=== PATIENT | male | born 1955 | race Caucasian/White ===

== ENCOUNTER 2016-12-14 15:30 | Observation (INO) | payer OTHER ==
[~2016-12-14] VITALS: Ht 190.5 cm; Wt 98.9 kg
[~2016-12-14 15:30] MED LIST: AMOXICILLIN500 M3 PO; ASPIRIN EC81 M1 PO; ASPIRIN325 M2 PO; BENTYL10 M1 PO; CEPHALEXIN500 M3 PO; CLINDAMYCIN HC300 M1 PO; GLIMEPIRIDE4 M1 PO; LOSARTAN POTASS25 M1 PO; METFORMIN HCL1000 M1 PO; METOPROLOL TART50 M1 PO; PERCOCET 5-3251 EACH PO; SIMVASTATIN20 M2 PO; ZOFRAN ODT4 M1 SL
--- NOTE | 2016-12-14 15:42 | NUR ---
PT STATES HE IS HAVING HEAVINESS IN HIS CHEST AND SOB SINCE THIS AM ON AND OFF. PT STATES HE WAS FINE YESTERDAY. PT STATES HE HAD QUAD BIPASS 2 YEARS AGO AND STATES HE DIDN'T HAVE CHEST PAIN THEN EITHER.
--- NOTE | 2016-12-14 16:03 | ED CARDIAC/CP/PALPITATIONS ---
History of Present Illness General Chief Complaint: General Adult Stated Complaint: "HEAVY CHESTED AND OUT OF BREATH" Source: patient, family Exam Limitations: no limitations Allergies Coded Allergies: NO KNOWN ALLERGIES (07/30/16) Reconcile Medications Aspirin (Ecotrin*) 81 MG TABLET.DR 1 TAB PO DAILY HEART/BLOOD (Reported) Glimepiride 4 MG TABLET 0.5 TAB PO BID DIABETES (Reported) Losartan Potassium 25 MG TABLET 1 TAB PO DAILY HTN (Reported) Metformin HCl 1,000 MG TABLET 1 TAB PO BID DM (Reported) Metoprolol Tartrate 25 MG TABLET 1 TAB PO DAILY HEART (Reported) Simvastatin (Simvastatin*) 20 MG TABLET 1 TAB PO QPM HLD (Reported) Tamsulosin HCl 0.4 MG CAP.ER.24H 1 CAP PO DAILY PROSTATE (Reported) Triage Note: PT STATES HE IS HAVING HEAVINESS IN HIS CHEST AND SOB SINCE THIS AM ON AND OFF. PT STATES HE WAS FINE YESTERDAY. PT STATES HE HAD QUAD BIPASS 2 YEARS AGO AND STATES HE DIDN'T HAVE CHEST PAIN THEN EITHER. Triage Nurses Notes Reviewed? yes Onset: Abrupt Duration: better Timing: single episode today Quality/Severity: pressure Location: substernal Radiation: no radiation Activities at Onset: none HPI: Patient is a 61-year-old man with a past medical history significant for diabetes2, hypertension and hyperlipidemia, AND AN ADMISSION proximal leg 1 year ago for concerns of alpha strep septicemia resulting from pyelonephritis and right-sided obstructive uropathy status post stent placement by Dr. Kendrick Patient also has a significant history of coronary artery disease in which September 2015 he had CABG performed. Patient's animal nurse Dr. Hollingsworth. Patient states that he woke up in his normal state of health today and approximately at 9:30 in the morning while changing a hinge on his door he had acute onset of substernal chest heaviness described at the time of 6 out of 10 localized pain and had mild shortness of breath and cough. Patient states that he had resolution of left arm paresthesia and pain prior to arrival during the onset of his symptoms. Patient states that for the past 9-10 hours his symptoms have improved and currently complains of 3-10 substernal chest heaviness. Patient takes a 81 mg of aspirin every night no aspirin was administered today. Denies any fever, chills, back pain, nausea vomiting palpitations diaphoresis leg swelling hemoptysis Patient presents to emergency room (SARAI RIVERA) Vital Signs & Intake/Output Vital Signs & Intake/Output Vital Signs Date Time Temp Pulse Resp B/P Pulse O2 O2 Flow FiO2 Ox Delivery Rate 12/14 1707 85 141/83 12/14 1622 98.0 80 18 149/76 100 Room Air 12/14 1542 97.8 86 16 160/93 96 Room Air Past History Travel History Traveled to [place] past 21 day No Medical History Any Pertinent Medical History? 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 MOTHER (Lung cancer). Relation not specified for: FHx: stroke Hx Contributory? No (SARAI RIVERA) Review of Systems Review of Systems Constitutional: Reports: no symptoms. EENTM: Reports: no symptoms. Respiratory: Reports: see HPI. Cardiovascular: Reports: see HPI, chest pain. GI: Reports: no symptoms. Genitourinary: Reports: no symptoms. Musculoskeletal: Reports: see HPI. Skin: Reports: no symptoms. Neurological/Psychological: Reports: no symptoms. Hematologic/Endocrine: Reports: no symptoms. Immunologic/Allergic: Reports: no symptoms. All Other Systems: Reviewed and Negative (SARAI RIVERA) Physical Exam Physical Exam General Appearance: no apparent distress, alert, comfortable Cardiovascular: regular rate/rhythm Comments: Well-developed well-nourished person in no acute distress HEENT: Normal EENT exam, Neck: Supple, no lymphadenopathy, normal range of motion without pain or tenderness Back: Nontender, no CVA tenderness. Full range of motion Cardiovascular: Regular rate and rhythms no murmurs rubs or gallops, normal JVP Respiratory: Chest nontender. No respiratory distress.breath sounds clear to auscultation bilaterally Abdomen: Soft, nontender nondistended, no appreciable organomegaly. Normal bowel sounds. No ascites Extremity: No edema, no calf tenderness to palpation, normal and equal pulses. Neuro: Alert oriented x3, motor sensory normal, Skin: No appreciable rash on exposed skin, skin is warm and dry. Psych: Mood and affect is normal, memory and judgment is normal. Core Measures ACS in differential dx? Yes ASA ordered for poss ACS? Yes-ordered Severe Sepsis Present: No Septic Shock Present: No (SARAI RIVERA) Progress Differential Diagnosis: AMI, aortic dissection, atrial fibrillation, cholecystitis, CHF/pulm edema, costochondritis, hyperkalemia, hypovolemia, hyperthyroid, hyperventilation, musculoskeletal pain, myocarditis, pancreatitis, pericarditis, pneumonia, pneumothorax, PSVT, pulmonary embolism, PUD/GERD, PVCs/ PACs, respiratory failure, rib fracture, sepsis, unstable angina, V-fib/V-Tach Diagnostic Imaging: Viewed by Me: Radiology Read. CXR Impression: no acute abnormality, no infiltrates, normal size heart Initial ED EKG: normal p-waves, normal QRS complex, normal sinus rhythm, 85 BPM NORMAL SINUS RHYTHM Comments: PATIENT: SACHIN JARQUIN PRESENT AGE: 61 PATIENT ACCOUNT NO: [id number] : 53 LOCATION: [facility] ORDERING PHYSICIAN: SARAI NGUYEN SERVICE DATE: 12/14/16 EXAM TYPE: RAD - XRY-CHEST XRAY, PA AND LATERAL EXAMINATION: XR CHEST CLINICAL INFORMATION: Chest pain COMPARISON: 07/30/2016 TECHNIQUE: 2 views of the chest were obtained. FINDINGS: Median sternotomy wires are demonstrated. CABG markers and surgical clips identified. The cardiac silhouette is not enlarged. The lungs and pleural spaces are clear. IMPRESSION: No acute cardiopulmonary process is seen. (SARAI RIVERA) Plan of Care: Orders Procedure Date/time Status Heart Healthy Diet 12/15 B Active TROPONIN LEVEL 12/15 1999 Active COMPREHENSIVE METABOLIC PANEL 12/15 0600 Active CBC WITHOUT DIFFERENTIAL 12/15 06 Active TROPONIN LEVEL 12/15 0200 Active EKG 12/[address] in observation 12/14 1854 Active Misc Message 12/14 185 Active ED Holding Orders 12/14 185 Active Vital Signs 12/14 185 Active Code Status 12/14 185 Active Patient Data 12/14 182 Active FingerStick- Glucose 02/19 1826 Active Telemetry/Fruit Sprayer 12/14 1621 Active TROPONIN LEVEL 12/14 1550 Complete PARTIAL THROMBOPLASTIN TIME 12/14 1550 Complete PROTHROMBIN TIME 12/14 1550 Complete COMPREHENSIVE METABOLIC PANEL 12/14 1550 Complete CBC WITHOUT DIFFERENTIAL 12/14 1550 Complete EKG 12/14 1531 Active Current Medications Sig/Roxie Start time Last Medication Dose Stop Time Status Admin Atorvastatin Calcium 20 MG 1700 12/15 1700 UNVr (Lipitor) Metoprolol Tartrate 25 MG DAILY 12/15 1000 UNVr (Lopressor) Insulin Aspart 0 TIDAC 12/15 0800 UNVr (NovoLOG) Tamsulosin HCl 0.4 MG DAILY 12/14 1837 UNVr (Flomax) Laboratory Tests 12/14/16 1550: Anion Gap 11, Estimated GFR > 60, BUN/Creatinine Ratio 24.4, Glucose 246 H, Calcium 9.4, Total Bilirubin 1.0, AST 18, ALT 30, Alkaline Phosphatase 64, Troponin I < 0.01, Total Protein 7.3, Albumin 4.0, Globulin 3.3, Albumin/ Globulin Ratio 1.2, PT 10.8, INR 1.03, APTT 30, CBC w Diff NO MAN DIFF REQ, RBC 5.08, MCV 83.3, MCH 28.0, RDW 13.7, MPV 9.4, Gran % 61.0, Lymphocytes % 30.3, Monocytes % 6.9, Eosinophils % 1.5, Basophils % 0.3, Absolute Granulocytes 4.6, Absolute Lymphocytes 2.3, Absolute Monocytes 0.5, Absolute Eosinophils 0.1, Absolute Basophils 0, PUBS MCHC 33.6 Patient currently is in no apparent distress however due to significant past medical history of coronary artery disease and recent CABG that patient's presenting complaints of chest pain shortness breath and arm pain is of concern to have patient admitted to telemetry discussed patient with Dr. Serrano who also evaluated patient. Initially patient was hesitant on being administered sublingual nitroglycerin however he was later convinced. Patient was given therapeutic dose of aspirin. First set of cardiac enzymes and EKG one unremarkable however did discuss disposition and plan with patient and family for observation due to chest pain that he agreed (HERNAN NGUYEN,SARAI) Comments: 12/14/2016 5:15:15 PM patient's case discussed with Dr. eugene Melara. (REGINA SERRANO MD) Departure Departure Disposition: STILL A PATIENT Condition: Stable Clinical Impression Primary Impression: Chest pain Referrals: JUSTUS LITTLE,SUNNI Brunner (PCP/Family) Departure Forms: Customer Survey General Discharge Information Observation Note Spoke With: JORGE ALBERTO LARIOS MD Physician Advisor Notified: CECELIA LITTLE,ACE [facility] [facility] Patient In: Non-ED OBS Care Area Rationale for Observation: My rational for observation is as follows [patient will be admitted to to telemetry observation for concerns of rule out ACS in which patient requires cardiology consultation, repeat labs repeat cardiac enzymes, telemetry monitoring, repeat EKG. Outpatient treatment at this time due to significant past medical history of coronary artery disease and recent CABG would be medically harmful]. (SARAI RIVERA) PA/BILLIARD TABLE ASSEMBLER Co-Sign Statement Statement: ED Attending supervision documentation- [x] I saw and evaluated the patient. I have also reviewed all the pertinent lab results and diagnostic results. I agree with the findings and the plan of care as documented in the PA's/BILLIARD TABLE ASSEMBLER's documentation. [] I have reviewed the ED Record and agree with the PA's/BILLIARD TABLE ASSEMBLER's documentation. [] Additions or exceptions (if any) to the PAs/BILLIARD TABLE ASSEMBLER's note and plan are summarized below: [] (REGINA SERRANO MD) Critical Care Note Critical Care Note Critical Care Time: 30-74 min (SARAI RIVERA)
[2016-12-14 16:07] LABS: ABSOLUTE BASOPHIL COUNT 0 /CUMM (0.0-0.2); ABSOLUTE EOSINOPHIL COUNT 0.1 /CUMM (0.0-0.7); ABSOLUTE GRANULOCYTE CT 4.6 /CUMM (1.4-6.5); ABSOLUTE LYMPH COUNT 2.3 /CUMM (1.2-3.4); ABSOLUTE MONOCYTE COUNT 0.5 /CUMM (0.10-0.60); BASOPHIL % 0.3 % (0.0-2.0); EOSINOPHIL % 1.5 % (0-5); HEMATOCRIT 42.3 % (42-52); MEAN CORPUSCULAR HGB CONC 33.6 G/DL (33.0-37.0); MEAN CORPUSCULAR VOLUME 83.3 FL (80.0-94.0); MEAN PLATELET VOLUME 9.4 FL (7.4-10.4); PLATELET COUNT 223 /CUMM (130-400); RBC DISTRIBUTION WIDTH 13.7 % (11.5-14.5); RED BLOOD CELL CT 5.08 /CUMM (4.70-6.10); WHITE BLOOD CELL COUNT 7.5 /CUMM (4.8-10.8)
[2016-12-14 16:31] LABS: PT 10.8 SEC (9.4-12.5); PTT 30 SEC (25-37)
[2016-12-14] MEDS ORDERED: TAMSULOSIN HCL0.4 M1 PO (16:42)
[2016-12-14] MEDS ORDERED: METOPROLOL TART25 M1 PO (16:43)
--- NOTE | 2016-12-14 16:43 | NUR ---
PT STATES HE DOES NOT WANT TO TAKE SL NITRO UNLESS DR. HINKLE APPROVES IT
--- NOTE | 2016-12-14 16:56 | RADIOLOGY REPORT ---
EXAMINATION: XR CHEST CLINICAL INFORMATION: Chest pain COMPARISON: 07/30/2016 TECHNIQUE: 2 views of the chest were obtained. FINDINGS: Median sternotomy wires are demonstrated. CABG markers and surgical clips identified. The cardiac silhouette is not enlarged. The lungs and pleural spaces are clear. IMPRESSION: No acute cardiopulmonary process is seen.
--- NOTE | 2016-12-14 17:07 | NUR ---
0.4MG SL NITRO ADMINISTERED FOR CHEST DISCOMFORT 12/05. NSR ON MONITOR. WILL CONTINUE TO MONITOR
--- NOTE | 2016-12-14 17:15 | NUR ---
PT STATES PAIN IS UNCHANGED AFTER NITRO ADMINISTRATION
--- NOTE | 2016-12-14 18:28 | History & Physical ---
DAVID JOHN 12/14/16 1827: General Information and HPI MD Statement: I have seen and personally examined SACHIN JARQUIN and documented this H&P. The patient is a 61 year old M who presented with a patient stated chief complaint of chest pressure Source of Information: patient, old records Exam Limitations: no limitations History of Present Illness: 60-year-old gentleman with a past medical history significant for quadruple bypass September 2015 done at [facility], diabetes, hypertension and hyperlipidemia, admitted to [facility] 07/30/16 for alpha strep septicemia secondary to pyelonephritis here for evaluation of chest pressure. Patient states that yesterday he was doing heavy work, doing woodwork coming-out hinges for doors and he went up and down the stairs almost 25 times without any shortness of breath however he did inhale a lot of dust. This morning and 9:30 when he woke up he felt substernal chest pressure which was intermittent and lasted for a few minutes with some mild left upper arm tingling. Last episode was 3 hours ago. On interview he remained pain-free and reported some difficulty taking deep breaths. Denied fever, chills, palpitations, dizziness, diaphoresis, pleuritic chest pain. Allergies/Medications Allergies: Coded Allergies: NO KNOWN ALLERGIES (07/30/16) Home Med list Aspirin (Ecotrin*) 81 MG TABLET.DR 1 TAB PO DAILY HEART/BLOOD (Reported) Glimepiride 4 MG TABLET 0.5 TAB PO BID DIABETES (Reported) Losartan Potassium 25 MG TABLET 1 TAB PO DAILY HTN (Reported) Metformin HCl 1,000 MG TABLET 1 TAB PO BID DM (Reported) Metoprolol Tartrate 25 MG TABLET 1 TAB PO DAILY HEART (Reported) Simvastatin (Simvastatin*) 20 MG TABLET 1 TAB PO QPM HLD (Reported) Tamsulosin HCl 0.4 MG CAP.ER.24H 1 CAP PO DAILY PROSTATE (Reported) Compliance With Home Meds: GOOD Past History Travel History Traveled to [place] past 21 day No Medical History Neurological: NONE EENT: NONE Cardiovascular: CAD, hyperlipidemia, QUADRUPLE BYPASS Respiratory: NONE Gastrointestinal: GERD Hepatic: NONE Musculoskeletal: NONE Psychiatric: NONE Endocrine: diabetes Blood Disorders: NONE Cancer(s): 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 Heart disease MOTHER (Lung cancer). Relation not specified for: FHx: stroke Psychosocial History Who Do You Live With? Fiance Services at Home: None Smoking Status: Former Smoker ETOH Use: occasional use Illicit Drug Use: denies illicit drug use Functional Ability ADLs Independent: dressing, eating, toileting, bathing. Ambulation: independent IADLs Independent: shopping, housework, finances, food prep, telephone, transportation , medication admin. Review of Systems Review of Systems Constitutional: Denies: chills, diaphoresis, fever, malaise, weakness, unexplained weight loss. Cardiovascular: Denies: chest pain, edema, orthopena, palpitations, peripheral edema, syncope. Respiratory: Denies: cough, hemoptysis, orthopnea, short of breath, sputum production, stridor, wheezing. GI: Denies: abdominal pain, bloating, constipation, diarrhea, distention, bowel incontinence, melena, nausea, bloody stool, changes in stool, vomiting, steatorrhea. Genitourinary: Denies: discharge, dysuria, frequency, hematuria, hesitation, nocturia, pain, urgency. Exam & Diagnostic Data Last 24 Hrs of Vital Signs/I&O Vital Signs Date Time Temp Pulse Resp B/P Pulse O2 O2 Flow FiO2 Ox Delivery Rate 12/14 1707 85 141/83 12/14 1622 98.0 80 18 149/76 100 Room Air 12/14 1542 97.8 86 16 160/93 96 Room Air Intake & Output 12/14 1600 12/14 0800 12/14 0000 Intake Total Output Total Balance Patient 218 lb Weight Physical Exam General Appearance Alert, Oriented X3, Cooperative, No Acute Distress HEENT Atraumatic, EOMI, Mucous Membr. moist/pink Neck Supple, No JVD, +2 Carotid Pulse wo Bruit Cardiovascular Regular Rate, Normal S1, Normal S2 Lungs Clear to Auscultation, Normal Air Movement Abdomen Normal Bowel Sounds, Soft, No Tenderness Neurological Normal Speech, Strength at 5/5 X4 Ext, Normal Tone, Cranial Nerves 3-12 NL Extremities No Edema Diagnostic Data EKG Results Wilmer sinus, rate 85, QTC 452, Q-wave in inferior leads seen, old LBBB CXR Results IMPRESSION: No acute cardiopulmonary process is seen. Assessment/Plan Assessment: 60-year-old gentleman with a past medical history significant for quadruple bypass September 2015 done at [facility], diabetes, hypertension and hyperlipidemia, admitted to [facility] 07/30/16 for alpha strep septicemia secondary to pyelonephritis here for evaluation of chest pressure. Will be admitted to telemetry for 23-hour labs. As Ranked By This Provider Problem List: 1. Chest pain Assessment/Plan Continuous cardiac monitoring Will trend troponin/ EKG to rule out ACS States that he had a recent echo done at Dr. Hollingsworth's office in September Inform cardiology in the a.m. 2. Diabetes mellitus Assessment/Plan Monitor fingersticks NovoLog sliding scale 3. Hypertension Assessment/Plan Continue Lipitor and Lopressor 4. BPH (benign prostatic hyperplasia) Assessment/Plan Continue Flomax 5. DVT prophylaxis Assessment/Plan The Lovenox 6. Full code status Core Measures/Miscellaneous Acute Coronary Syndrome ACS Diagnosis: No Cerebrovascular Accident CVA/TIA Diagnosis: No Congestive Heart Failure CHF Diagnosis: No Venous Thromboembolism VTE Risk Factors: Age > 40 VTE Prophylaxis Ordered Inpt: Pharm- Lovenox No Mech VTE prophylaxis d/t: No contraindications No VTE Pharm Prophylaxis d/t: No contraindications VTE Diagnosis: No VTE Type: NONE VTE Confirmed by (Test): NONE Severe Sepsis Severe Sepsis Present: No Septic Shock Septic Shock Present: No Miscellaneous Documentation Attending Case Discussed With: JORGE ALBERTO LARIOS MD Primary Care Physician: SUNNI JEROME MD Patient sees these Specialists Dr. Hollingsworth Level of Patient Care: Telemetry JORGE ALBERTO LARIOS MD 12/14/161910: Attending MD Review Statement Attending Statement Attending MD Statement: examined this patient, discuss w/resident/PA/[facility] PROMOTER, agreed w/resident/PA/[employer]OMOT[facility], reviewed EMR data (avail) Attending Assessment/Plan: 61M admitted for exertional chest pain, shortness of breath. Will observe in telemetry, serial enzyems and troponin, cardiology consult. Will consider inpatient vs outpatient stress test in the morning. Continue ASA, statin, home medications. JUDAH YOUNG 12/14/161913: Resident Review Statement Resident Statement: examined this patient, agreed with statistics intern Other Findings: PATIENT IS 61 YEAR OLD MALE WITH pmh of HTN, HLD, ACS CABG perfomred in sep 2015 , Alpha strep bacteremia from pyelonephritis and right-sided obstructive uropathy came with chief complain of chest pressure this morning around 9 am. 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 5/10 initially. Patient also reported on mild exertional shortness of breath. Patient states that he has never has similar kind of symptoms in the past. 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 He had recent ECho done in Sep [address] Hollingsworth's office records unavaliable. Patient took all his morning medications before coming in this morning. Vitals and labs as above CXR - Clear Assessment and Plan Will admit to telemetry floor and monitor for chest pain/pressure Will trend serial troponins and ekg at 8 pm and 2 am looking for ischemia WIll call cardiology consult in am Patient to be continued on his home meds including aspirin, metoprolol, tamsulosin, losartan Will start him on low dose novolg SS and check serial finger sticks heart healthy/diabetic diet DVT ppx sc lovenox Patient is full code.
--- NOTE | 2016-12-14 19:02 | NUR ---
PT HAS BED ASSIGNMENT 185-1
--- NOTE | 2016-12-14 19:18 | NUR ---
PHARMACY CALLED TO CHANGE TIME OF MEDS
--- NOTE | 2016-12-14 19:24 | NUR ---
REPORT GIVEN TO YELENA GAR
--- NOTE | 2016-12-14 19:29 | NUR ---
PT STATES HE TAKES LONG ACTING INSULIN AT NIGHT AND DOES NOT TAKE SHORT ACTING INSULIN AT ALL.
--- NOTE | 2016-12-14 19:30 | NUR ---
HOUSE STAFF PAGED FOR MED CLARIFICATION
[2016-12-14 21:00] VITALS: BP 102/64
[2016-12-15 03:14] LABS: ABSOLUTE BASOPHIL COUNT 0 /CUMM (0.0-0.2); ABSOLUTE EOSINOPHIL COUNT 0.2 /CUMM (0.0-0.7); ABSOLUTE GRANULOCYTE CT 3.1 /CUMM (1.4-6.5); ABSOLUTE LYMPH COUNT 2.1 /CUMM (1.2-3.4); ABSOLUTE MONOCYTE COUNT 0.4 /CUMM (0.10-0.60); BASOPHIL % 0.6 % (0.0-2.0); EOSINOPHIL % 3.1 % (0-5); GRANULOCYTE % 52.6 % (42.2-75.2); HEMATOCRIT 41.2 % (42-52); MEAN CORPUSCULAR HGB CONC 33.5 G/DL (33.0-37.0); MEAN CORPUSCULAR VOLUME 83.5 FL (80.0-94.0); PLATELET COUNT 207 /CUMM (130-400); RBC DISTRIBUTION WIDTH 13.6 % (11.5-14.5); RED BLOOD CELL CT 4.93 /CUMM (4.70-6.10); WHITE BLOOD CELL COUNT 5.9 /CUMM (4.8-10.8)
[2016-12-15 08:27] VITALS: BP 126/80
[2016-12-15 09:43] VITALS: BP 126/80
--- NOTE | 2016-12-15 10:08 | Patient Discharge Instructions ---
Discharge Instructions General Discharge Information You were seen/treated for: chest discomfort Special Instructions: Please follow-up with your primary care physician within one week of discharge Please follow-up with your nuclear criticality safety engineer within 1 week of discharge Diet Recommended Diet: Heart Healthy Acute Coronary Syndrome Inclusion Criteria At DC or during hospital stay patient has or had the following: ACS DIAGNOSIS No Discharge Core Measures Meds if any: Prescribed or Continued at Discharge Meds if any: NOT Prescribed or Continued at Discharge Congestive Heart Failure Inclusion Criteria At DC or during hospital stay patient has or had the following: CHF DIAGNOSIS No Discharge Core Measures Meds if any: Prescribed or Continued at Discharge Meds if any: NOT Prescribed or Continued at Discharge Cerebrovascular accident Inclusion Criteria At DC or during hospital stay patient has or had the following: CVA/TIA Diagnosis No Discharge Core Measures Meds if any: Prescribed or Continued at Discharge Meds if any: NOT Prescribed or Continued at Discharge Venous thromboembolism Inclusion Criteria VTE Diagnosis No VTE Type NONE VTE Confirmed by (Test) NONE Discharge Core Measures - Per Current guidelines, there needs to be overlap - treatment for the first 5 days of Warfarin therapy. - If discharged on Warfarin prior to 5 days of - overlap therapy, the patient will need to be - assessed for post discharge needs including - *Post discharge parental anticoagulation - *Warfarin and/or parental anticoagulation education - *Follow up date to check INR post discharge At least 5 days overlap therapy as Inpatient No Meds if any: Prescribed or Continued at Discharge Note: Overlap Therapy is Warfarin and Anticoagulant Meds if any: NOT Prescribed or Continued at Discharge
--- NOTE | 2016-12-15 10:22 | Cons- Cardiology ---
General Information and HPI Consulting Request Date of Consult: 12/15/16 Requested By: JORGE ALBERTO LARIOS MD Reason for Consult: CAD, chest pain History of Present Illness: The patient is a 61-year-old male with history of CABG in 2014, diabetes mellitus, hypertension, recent admission in July for alpha strep bacteremia secondary to pyelonephritis. He presents with complaint of chest discomfort, which occurred after heavy exertion and exposure to sawdust. He notes that he was doing woodwork on his doors, during which time he went up and down the stairs 25 times and he was exposed to a large amount of sawdust. The next day, he awoke with substernal chest pressure. The chest pressure was intermittent, lasting for a few minutes per episode, and occurring intermittently throughout the day. The longest episode was 15 minutes. At the most severe point, the chest discomfort was a 5 out of 10 in severity. He noted shortness of breath associated with chest discomfort. No diaphoresis. No lightheadedness or dizziness. No nausea or vomiting. He noted some pleuritic chest pain. Allergies/Medications Allergies: Coded Allergies: NO KNOWN ALLERGIES (07/30/16) Home Med List: Aspirin (Ecotrin*) 81 MG TABLET.DR 1 TAB PO DAILY HEART/BLOOD (Reported) Glimepiride 4 MG TABLET 0.5 TAB PO BID DIABETES (Reported) Losartan Potassium 25 MG TABLET 1 TAB PO DAILY HTN (Reported) Metformin HCl 1,000 MG TABLET 1 TAB PO BID DM (Reported) Metoprolol Tartrate 25 MG TABLET 1 TAB PO DAILY HEART (Reported) Simvastatin (Simvastatin*) 20 MG TABLET 1 TAB PO QPM HLD (Reported) Tamsulosin HCl 0.4 MG CAP.ER.24H 1 CAP PO DAILY PROSTATE (Reported) Current Medications: Current Medications Sig/Roxie Start time Last Medication Dose Route Stop Time Status Admin Acetaminophen 650 MG Q8P PRN 12/14 191 AC PO Aspirin 0 .STK-MED ONE 12/14 1644 DC PO Aspirin 325 MG ONCE ONE 12/14 1630 DC 12/14 PO 12/14 1631 1707 Aspirin Buffered 81 MG DAILY 12/15 1000 AC 12/15 PO 0940 Atorvastatin Calcium 20 MG 1700 12/14 1915 AC 12/14 PO 2139 Enoxaparin Sodium 40 MG DAILY 12/15 1000 AC 12/15 SC 0943 Insulin Aspart 0 TIDAC 12/15 0800 AC 12/15 SC 0828 Insulin Aspart 2 UNITS ONCE ONE 12/140 DC 12/14 SC 12/14 193 195 Losartan Potassium 25 MG DAILY 12/15 1000 AC 12/15 PO 0940 Metoprolol Tartrate 25 MG BID 12/15 1000 AC 12/15 PO 0943 Nitroglycerin 0 .STK-MED ONE 12/14 1705 DC SL Nitroglycerin 0.4 MG ONCE ONE 12/14 1630 DC 12/14 SL 12/14 1631 1707 Tamsulosin HCl 0.4 MG 0 12/14 2199 AC 12/14 PO 2140 Review of Systems Review of Systems: No rash. No tremor. No melena. No diaphoresis. All other systems were reviewed, and were noted to be negative. 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 Heart disease MOTHER (Lung cancer). Relation not specified for: FHx: stroke Psychosocial History Who Do You Live With? Fiance Services at Home: None Smoking Status: Former Smoker ETOH Use: occasional use Illicit Drug Use: denies illicit drug use Functional Ability ADLs Independent: dressing, eating, toileting, bathing. Ambulation: independent IADLs Independent: shopping, housework, finances, food prep, telephone, transportation , medication admin. Exam & Diagnostic Data Vital Signs and I&O Vital Signs Date Time Temp Pulse Resp B/P Pulse O2 O2 Flow FiO2 Ox Delivery Rate 12/15 0943 76 126/80 12/15 0940 76 126/80 12/15 0827 98.2 74 18 126/80 96 Room Air 12/14 2140 80 102/64 12/14 2100 98.0 80 18 102/64 96 Room Air 12/14 1906 97.9 78 20 149/77 96 Room Air 12/14 1745 82 16 134/79 95 Room Air 12/14 1707 85 141/83 12/14 1622 98.0 80 18 149/76 100 Room Air 12/14 1542 97.8 86 16 160/93 96 Room Air Intake & Output 12/15 1600 12/15 0800 12/15 0000 12/14 1600 12/14 0812/14 0000 Intake Total 200 480 Output Total Balance 200 480 Intake, Oral 200 480 Patient 218 lb 218 lb Weight Physical Exam: Gen: The patient is in no acute distress HEENT: Normal nose, ears, and oropharynx. Pupils equal bilaterally. Conjunctiva normal. Neck: Supple with no JVD, no masses, and no thyromegaly Lungs: Clear to auscultation with normal respiratory effort Heart: RRR, S1, S2, no murmurs. No peripheral edema, 2+ pulses in the lower extremities bilaterally Abdomen: Soft, nontender, no masses. No hepatomegaly. No splenomegaly Extremities: No clubbing or cyanosis. Normal muscle strength in the upper and lower extremities Skin: Normal skin turgor with no skin ulcers or lesions noted. Neuro: Cranial nerves intact. Sensation intact Psych: Alert and oriented 3 with appropriate affect Labs/Yosef Results: Laboratory Tests 12/15 12/15 12/14 0255 0255 0 Chemistry Sodium (137 - 145 mmol/L) 136 L Potassium (3.5 - 5.1 mmol/L) 4.3 Chloride (98 - 107 mmol/L) 102 Carbon Dioxide (22 - 30 mmol/L) 26 Anion Gap (5 - 16) 9 BUN (9 - 20 mg/dL) 21 H Creatinine (0.7 - 1.2 mg/dL) 0.8 Estimated GFR (>60 ml/min) > 60 BUN/Creatinine Ratio (7 - 25 %) 26.3 H Glucose (65 - 99 mg/dL) 257 H Calcium (8.4 - 10.2 mg/dL) 9.0 Total Bilirubin (0.2 - 1.3 mg/dL) 1.0 AST (17 - 59 U/L) 12 L ALT (21 - 72 U/L) 32 Alkaline Phosphatase (< 127 U/L) 61 Troponin I (<0.11 ng/ml) < 0.01 < 0.01 Total Protein (6.3 - 8.2 g/dL) 6.5 Albumin (3.5 - 5.0 g/dL) 3.6 Globulin (1.9 - 4.2 gm/dL) 2.9 Albumin/Globulin Ratio (1.1 - 2.2 %) 1.2 Hematology CBC w Diff NO MAN DIFF REQ WBC (4.8 - 10.8 /CUMM) 5.9 RBC (4.70 - 6.10 /CUMM) 4.93 Hgb (14.0 - 18.0 G/DL) 13.8 L Hct (42 - 52 %) 41.2 L MCV (80.0 - 94.0 FL) 83.5 MCH (27.0 - 31.0 PG) 28.0 RDW (11.5 - 14.5 %) 13.6 Plt Count (130 - 400 /CUMM) 207 MPV (7.4 - 10.4 FL) 9.0 Gran % (42.2 - 75.2 %) 52.6 Lymphocytes % (20.5 - 51.1 %) 36.2 Monocytes % (1.7 - 9.3 %) 7.5 Eosinophils % (0 - 5 %) 3.1 Basophils % (0.0 - 2.0 %) 0.6 Absolute Granulocytes (1.4 - 6.5 /CUMM) 3.1 Absolute Lymphocytes (1.2 - 3.4 /CUMM) 2.1 Absolute Monocytes (0.10 - 0.60 /CUMM) 0.4 Absolute Eosinophils (0.0 - 0.7 /CUMM) 0.2 Absolute Basophils (0.0 - 0.2 /CUMM) 0 PUBS MCHC (33.0 - 37.0 G/DL) 33.5 12/14 1550 Chemistry Sodium (137 - 145 mmol/L) 136 L Potassium (3.5 - 5.1 mmol/L) 4.5 Chloride (98 - 107 mmol/L) 100 Carbon Dioxide (22 - 30 mmol/L) 26 Anion Gap (5 - 16) 11 BUN (9 - 20 mg/dL) 22 H Creatinine (0.7 - 1.2 mg/dL) 0.9 Estimated GFR (>60 ml/min) > 60 BUN/Creatinine Ratio (7 - 25 %) 24.4 Glucose (65 - 99 mg/dL) 246 H Calcium (8.4 - 10.2 mg/dL) 9.4 Total Bilirubin (0.2 - 1.3 mg/dL) 1.0 AST (17 - 59 U/L) 18 ALT (21 - 72 U/L) 30 Alkaline Phosphatase (< 127 U/L) 64 Troponin I (<0.11 ng/ml) < 0.01 Total Protein (6.3 - 8.2 g/dL) 7.3 Albumin (3.5 - 5.0 g/dL) 4.0 Globulin (1.9 - 4.2 gm/dL) 3.3 Albumin/Globulin Ratio (1.1 - 2.2 %) 1.2 Coagulation PT (9.4 - 12.5 SEC) 10.8 INR (0.90 - 1.17) 1.03 APTT (25 - 37 SEC) 30 Hematology CBC w Diff NO MAN DIFF REQ WBC (4.8 - 10.8 /CUMM) 7.5 RBC (4.70 - 6.10 /CUMM) 5.08 Hgb (14.0 - 18.0 G/DL) 14.2 Hct (42 - 52 %) 42.3 MCV (80.0 - 94.0 FL) 83.3 MCH (27.0 - 31.0 PG) 28.0 RDW (11.5 - 14.5 %) 13.7 Plt Count (130 - 400 /CUMM) 223 MPV (7.4 - 10.4 FL) 9.4 Gran % (42.2 - 75.2 %) 61.0 Lymphocytes % (20.5 - 51.1 %) 30.3 Monocytes % (1.7 - 9.3 %) 6.9 Eosinophils % (0 - 5 %) 1.5 Basophils % (0.0 - 2.0 %) 0.3 Absolute Granulocytes (1.4 - 6.5 /CUMM) 4.6 Absolute Lymphocytes (1.2 - 3.4 /CUMM) 2.3 Absolute Monocytes (0.10 - 0.60 /CUMM) 0.5 Absolute Eosinophils (0.0 - 0.7 /CUMM) 0.1 Absolute Basophils (0.0 - 0.2 /CUMM) 0 PUBS MCHC (33.0 - 37.0 G/DL) 33.6 Diagnostic Data EKG Results EKG tracing is independently reviewed, and reveals normal sinus rhythm at 71, intraventricular conduction delay, inferior infarct age undetermined CXR Results Chest x-ray: No acute cardiopulmonary process is seen. Other Results ASTRID 08/01/16: 1. There are no vegetative lesions detected on this examination. 2. Mild aortic sclerosis is presenet with trivial aortic insufficiency. 3. Mitral leaflet thickening is present with mild anular calcification and mild mitral insuficiency with mild left atrial enlargement. 4. There is no pericardial fluid present. 5. The left atrial appendage is normal with no evidence of mass or thrombus. 6. The pulmonary venous anatomy is normal bilaterally. 7. Mild tricuspid insuficiency is present with minimal pulmonic insufficiency and no evidence of pulmonary hypertension. 8. A PFO is present with a small resting right to left shunt detected following agitated contrast saline injection. 9. The aorta is upper normal in size with Grade III atheromatous plaque noted throughout the arch and descending thoracic aorta. Several areas of plaque ulceration were also noted. Assessment/Plan Assessment/Plan Assessment: The patient is a 61-year-old male with history of CABG, diabetes mellitus, hypertension, and hyperlipidemia who presents with complaint of intermittent chest discomfort occurring after doing strenuous woodworking with exposure to large amounts of sawdust. He is now pain-free. He ruled out for myocardial infarctions with negative troponin 3. EKG did not reveal any ischemic changes. He notes that his most recent stress test was last summer, and he had an echocardiogram several months ago as an outpatient. Recommendations: * Discharge to home. * Resume usual outpatient cardiac medications. * Call or return to emergency department with further chest discomfort. * Follow up with Dr. Hollingsworth in one week. * [place] stress test as outpatient with Dr. Hollingsworth. Consult Acknowledgment - Thank you for your consult request.
--- NOTE | 2016-12-15 10:53 | PN- Att Addend ---
Attending Addendum Attending Brief Note 61M PMH HTN, T2DM, CAD s/p CABG observed for left sided chest pain that started after strenuous housework and inhalation of sawdust. Patient is completely asymptomatic today and feels well. He has had three negative troponins and three EKG's without acute changes. No telemetry events. AFVSS NAD NCAT Supple RRR no m/r/g CTAB Soft, NTND No c/c/e Pulses intact A&Ox3 no focal deficits Current Medications Sig/Roxie Start time Last Medication Dose Route Stop Time Status Admin Acetaminophen 650 MG Q8P PRN 12/14 1914 AC PO Aspirin 0 .STK-MED ONE 12/14 1644 DC PO Aspirin 325 MG ONCE ONE 12/14 1630 DC 12/14 PO 12/14 1631 1707 Aspirin Buffered 81 MG DAILY 12/15 1000 AC 12/15 PO 0940 Atorvastatin Calcium 20 MG 1700 12/14 1915 AC 12/14 PO 2139 Enoxaparin Sodium 40 MG DAILY 12/15 1000 AC 12/15 SC 0943 Insulin Aspart 0 TIDAC 12/15 0800 AC 12/15 SC 0828 Insulin Aspart 2 UNITS ONCE ONE 12/14 1930 DC 12/14 SC 12/14 1931 1956 Losartan Potassium 25 MG DAILY 12/15 1000 AC 12/15 PO 0940 Metoprolol Tartrate 25 MG BID 12/15 1000 AC 12/15 PO 0943 Nitroglycerin 0 .STK-MED ONE 12/14 1705 DC SL Nitroglycerin 0.4 MG ONCE ONE 12/14 1630 DC 12/14 SL 12/14 1631 1707 Tamsulosin HCl 0.4 MG 12/140 AC 12/14 PO 2140 Laboratory Tests 12/15 12/15 12/14 0255 0255 2040 Chemistry Sodium (137 - 145 mmol/L) 136 L Potassium (3.5 - 5.1 mmol/L) 4.3 Chloride (98 - 107 mmol/L) 102 Carbon Dioxide (22 - 30 mmol/L) 26 Anion Gap (5 - 16) 9 BUN (9 - 20 mg/dL) 21 H Creatinine (0.7 - 1.2 mg/dL) 0.8 Estimated GFR (>60 ml/min) > 60 BUN/Creatinine Ratio (7 - 25 %) 26.3 H Glucose (65 - 99 mg/dL) 257 H Calcium (8.4 - 10.2 mg/dL) 9.0 Total Bilirubin (0.2 - 1.3 mg/dL) 1.0 AST (17 - 59 U/L) 12 L ALT (21 - 72 U/L) 32 Alkaline Phosphatase (< 127 U/L) 61 Troponin I (<0.11 ng/ml) < 0.01 < 0.01 Total Protein (6.3 - 8.2 g/dL) 6.5 Albumin (3.5 - 5.0 g/dL) 3.6 Globulin (1.9 - 4.2 gm/dL) 2.9 Albumin/Globulin Ratio (1.1 - 2.2 %) 1.2 Hematology CBC w Diff NO MAN DIFF REQ WBC (4.8 - 10.8 /CUMM) 5.9 RBC (4.70 - 6.10 /CUMM) 4.93 Hgb (14.0 - 18.0 G/DL) 13.8 L Hct (42 - 52 %) 41.2 L MCV (80.0 - 94.0 FL) 83.5 MCH (27.0 - 31.0 PG) 28.0 RDW (11.5 - 14.5 %) 13.6 Plt Count (130 - 400 /CUMM) 207 MPV (7.4 - 10.4 FL) 9.0 Gran % (42.2 - 75.2 %) 52.6 Lymphocytes % (20.5 - 51.1 %) 36.2 Monocytes % (1.7 - 9.3 %) 7.5 Eosinophils % (0 - 5 %) 3.1 Basophils % (0.0 - 2.0 %) 0.6 Absolute Granulocytes (1.4 - 6.5 /CUMM) 3.1 Absolute Lymphocytes (1.2 - 3.4 /CUMM) 2.1 Absolute Monocytes (0.10 - 0.60 /CUMM) 0.4 Absolute Eosinophils (0.0 - 0.7 /CUMM) 0.2 Absolute Basophils (0.0 - 0.2 /CUMM) 0 PUBS MCHC (33.0 - 37.0 G/DL) 33.5 12/14 1550 Chemistry Sodium (137 - 145 mmol/L) 136 L Potassium (3.5 - 5.1 mmol/L) 4.5 Chloride (98 - 107 mmol/L) 100 Carbon Dioxide (22 - 30 mmol/L) 26 Anion Gap (5 - 16) 11 BUN (9 - 20 mg/dL) 22 H Creatinine (0.7 - 1.2 mg/dL) 0.9 Estimated GFR (>60 ml/min) > 60 BUN/Creatinine Ratio (7 - 25 %) 24.4 Glucose (65 - 99 mg/dL) 246 H Calcium (8.4 - 10.2 mg/dL) 9.4 Total Bilirubin (0.2 - 1.3 mg/dL) 1.0 AST (17 - 59 U/L) 18 ALT (21 - 72 U/L) 30 Alkaline Phosphatase (< 127 U/L) 64 Troponin I (<0.11 ng/ml) < 0.01 Total Protein (6.3 - 8.2 g/dL) 7.3 Albumin (3.5 - 5.0 g/dL) 4.0 Globulin (1.9 - 4.2 gm/dL) 3.3 Albumin/Globulin Ratio (1.1 - 2.2 %) 1.2 Coagulation PT (9.4 - 12.5 SEC) 10.8 INR (0.90 - 1.17) 1.03 APTT (25 - 37 SEC) 30 Hematology CBC w Diff NO MAN DIFF REQ WBC (4.8 - 10.8 /CUMM) 7.5 RBC (4.70 - 6.10 /CUMM) 5.08 Hgb (14.0 - 18.0 G/DL) 14.2 Hct (42 - 52 %) 42.3 MCV (80.0 - 94.0 FL) 83.3 MCH (27.0 - 31.0 PG) 28.0 RDW (11.5 - 14.5 %) 13.7 Plt Count (130 - 400 /CUMM) 223 MPV (7.4 - 10.4 FL) 9.4 Gran % (42.2 - 75.2 %) 61.0 Lymphocytes % (20.5 - 51.1 %) 30.3 Monocytes % (1.7 - 9.3 %) 6.9 Eosinophils % (0 - 5 %) 1.5 Basophils % (0.0 - 2.0 %) 0.3 Absolute Granulocytes (1.4 - 6.5 /CUMM) 4.6 Absolute Lymphocytes (1.2 - 3.4 /CUMM) 2.3 Absolute Monocytes (0.10 - 0.60 /CUMM) 0.5 Absolute Eosinophils (0.0 - 0.7 /CUMM) 0.1 Absolute Basophils (0.0 - 0.2 /CUMM) 0 PUBS MCHC (33.0 - 37.0 G/DL) 33.6 Patient is stable for discharge home. 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
[2016-12-15] MEDS ORDERED: INVOKANA100 M1 PO (10:56)
--- NOTE | 2016-12-15 11:09 | PN- Housestaff ---
Subjective Follow-up For: Chest discomfort Tele-Events Since Last Visit: Normal sinus rhythm heart rate 69-79, no overnight events Subjective: Seen and examined patient, offers complaints. Denies chest pain, shortness of breath Review of Systems Constitutional: Denies: chills, diaphoresis, fever, malaise, weakness, unexplained weight loss. Cardiovascular: Denies: chest pain, edema, orthopena, palpitations, peripheral edema, syncope. Respiratory: Denies: cough, hemoptysis, orthopnea, short of breath, sputum production, stridor, wheezing. Objective Last 24 Hrs of Vital Signs/I&O Vital Signs Date Time Temp Pulse Resp B/P Pulse O2 O2 Flow FiO2 Ox Delivery Rate 12/15 0943 76 126/80 12/15 0940 76 126/80 12/15 0827 98.2 74 18 126/80 96 Room Air 12/14 2140 80 102/64 12/14 2100 98.0 80 18 102/64 96 Room Air 12/14 1906 97.9 78 20 149/77 96 Room Air 12/14 1745 82 16 134/79 95 Room Air 12/14 1707 85 141/83 12/14 1622 98.0 80 18 149/76 100 Room Air 12/14 1542 97.8 86 16 160/93 96 Room Air Intake & Output 12/15 1600 12/15 0800 12/15 0000 Intake Total 200 480 Output Total Balance 200 480 Intake, Oral 200 480 Patient 218 lb Weight Physical Exam General Appearance: Alert, Oriented X3, Cooperative, No Acute Distress Cardiovascular: Regular Rate, Normal S1, Normal S2 Lungs: Clear to Auscultation, Normal Air Movement Abdomen: Normal Bowel Sounds, Soft, No Tenderness Extremities: No Edema Assessment/Plan Assessment: 60-year-old gentleman with a past medical history significant for quadruple bypass September 2015 done at [facility], diabetes, hypertension and hyperlipidemia, admitted to [facility] 07/30/16 for alpha strep septicemia secondary to pyelonephritis here for evaluation of chest pressure. Troponins negative 3, no new EKG changes noted. 1. Chest pain Assessment/Plan ACS ruled out Will follow-up with his electrical helper as outpatient 2. Diabetes mellitus Assessment/Plan Monitor fingersticks NovoLog sliding scale 3. Hypertension Assessment/Plan Continue Lipitor and Lopressor 4. BPH (benign prostatic hyperplasia) Assessment/Plan Continue Flomax 5. DVT prophylaxis [facility]. Full code status stable for discharge today Problem List: 1. Chest pain 2. BPH (benign prostatic hyperplasia) 3. Hypertension Pain Ratin Pain Location: Not applicable Pain Goal: Pain 4 or less Pain Plan: Current regimen Tomorrow's Labs & Rationales: None required
== END 2016-12-15 11:05 ==
LOC: ENRESERVDT → ENRESERVTM → ERH 15:30 → ENPENDDIS 18:55 → ERHI 18:55 → 1NO 19:42
PROVIDERS: Emergency Medicine; Internal Medicine; ADMIT Internal Medicine
DX: R07.9 Chest pain, unspecified (principal); I25.810 Atherosclerosis of coronary artery bypass graft(s) without angina pectoris; E11.9 Type 2 diabetes mellitus without complications; I10 Essential (primary) hypertension; E78.5 Hyperlipidemia, unspecified; N40.0 Benign prostatic hyperplasia without lower urinary tract symptoms
CPT/HCPCS: 2000; 6020; 36415; 93005; 93010; 96372; G0378; J1650; J3490

== ENCOUNTER 2017-02-17 21:09 | Emergency (ER) | payer OTHER ==
[~2017-02-17] VITALS: Ht 190.5 cm; Wt 99.8 kg
[~2017-02-17 21:09] MED LIST changes: +INVOKANA100 M1 PO; +METOPROLOL TART25 M1 PO; +TAMSULOSIN HCL0.4 M1 PO
--- NOTE | 2017-02-17 21:40 | ED CARDIAC/CP/PALPITATIONS ---
History of Present Illness General Chief Complaint: Palpitations Stated Complaint: HEART PALPITATIONS X 3 DAYS PER PT Source: patient, family, old records Exam Limitations: no limitations Vital Signs & Intake/Output Vital Signs & Intake/Output Vital Signs Date Time Temp Pulse Resp B/P B/P Pulse O2 O2 Flow FiO2 Mean Ox Delivery Rate 02/17 2302 98.0 85 18 140/75 98 Room Air 02/17 2253 Room Air 02/17 2123 97.6 83 18 156/78 96 Room Air Allergies Coded Allergies: NO KNOWN ALLERGIES (07/30/16) Reconcile Medications Aspirin (Ecotrin*) 81 MG TABLET.DR 1 TAB PO DAILY HEART/BLOOD (Reported) Glimepiride 4 MG TABLET 0.5 TAB PO BID DIABETES (Reported) Losartan Potassium 25 MG TABLET 1 TAB PO DAILY HTN (Reported) Metformin HCl 1,000 MG TABLET 1 TAB PO BID DM (Reported) Metoprolol Tartrate 25 MG TABLET 1 TAB PO DAILY HEART (Reported) Simvastatin (Simvastatin*) 20 MG TABLET 1 TAB PO QPM HLD (Reported) Tamsulosin HCl 0.4 MG CAP.ER.24H 1 CAP PO DAILY PROSTATE (Reported) Triage Note: PT TO TRIAGE WITH C/O INTERMITTENT PALPITATIONS AND DIZZINESS xWEEK, PT DENIES CHEST PAIN,SOB, DNEIES ABD PAIN. VSS. EKG DONE IN [place]. HX OF CAD,CABG,HTN,HICH CHOL,DIABETES. Triage Nurses Notes Reviewed? yes HPI: For the past week or so the patient has had intermittent palpitations. The symptoms will last approximate 5 minutes and then go away. Patient states the palpitations occur regardless of activity. They have happened while he is laying in watching TV as well as when he is up exerting himself. Patient also states that there are times that he is exerting himself and he does not get the symptoms. Patient states when he feels like his heart is palpating he gets a strange sensation in his throat. Patient denies any lightheadedness or shortness of breath. Patient denies any chest pain or chest tightness. Patient has not called his dental service technician about these symptoms. Past History Travel History Traveled to [place] past 21 day No Medical History Any Pertinent Medical History? 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 Heart disease MOTHER (Lung cancer). Relation not specified for: FHx: stroke Hx Contributory? No Review of Systems Review of Systems Constitutional: Reports: no symptoms. EENTM: Reports: no symptoms. Respiratory: Reports: no symptoms. Cardiovascular: Reports: see HPI, palpitations. GI: Reports: no symptoms. Genitourinary: Reports: no symptoms. Musculoskeletal: Reports: no symptoms. Skin: Reports: no symptoms. Neurological/Psychological: Reports: no symptoms. Hematologic/Endocrine: Reports: no symptoms. Immunologic/Allergic: Reports: no symptoms. All Other Systems: Reviewed and Negative Physical Exam Physical Exam General Appearance: well developed/nourished, alert, awake, anxious, mild distress Head: atraumatic, normal appearance Eyes: Bilateral: PERRL, EOMI. Ears, Nose, Throat: normal pharynx, normal ENT inspection, hearing grossly normal Neck: normal inspection, supple, full range of motion Respiratory: normal breath sounds, chest non-tender, no respiratory distress, lungs clear Cardiovascular: regular rate/rhythm, normal peripheral pulses Gastrointestinal: normal bowel sounds, soft, non-tender, no organomegaly Back: normal inspection, normal range of motion Extremities: normal inspection, normal capillary refill, normal range of motion, no edema Neurologic/Psych: no motor/sensory deficits, awake, alert, oriented x 3, normal gait, normal mood/affect Skin: intact, normal color, warm/dry Lymphatic: no anterior cervical beverly Core Measures ACS in differential dx? Yes ASA ordered for poss ACS? No-ACS ruled out Severe Sepsis Present: No Septic Shock Present: No Progress Differential Diagnosis: AMI, aortic dissection, atrial fibrillation, hyperthyroid, myocarditis, pericarditis, PSVT, PVCs/PACs Plan of Care: Orders Procedure Date/time Status Telemetry/Steam Room Attendant 02/18 2140 Active THYROID STIMULATING HORMONE 02/18 2140 Complete MAGNESIUM 02/18 2140 Complete COMPREHENSIVE METABOLIC PANEL 02/18 2140 Complete CBC WITHOUT DIFFERENTIAL 02/18 2140 Complete EKG 02/18 2112 Active Laboratory Tests 02/17/172199: Anion Gap 13, Estimated GFR > 60, BUN/Creatinine Ratio 22.2, Glucose 316 H, Calcium 8.9, Magnesium 1.7, Total Bilirubin 0.8, AST 12 L, ALT 39, Alkaline Phosphatase 57, Total Protein 6.8, Albumin 3.7, Globulin 3.1, Albumin/Globulin Ratio 1.2, TSH 5.230 H, CBC w Diff NO MAN DIFF REQ, RBC 4.80, MCV 84.2, MCH 28.1, RDW 14.1, MPV 9.5, Gran % 59.4, Lymphocytes % 29.2, Monocytes % 8.4, Eosinophils % 2.6, Basophils % 0.4, Absolute Granulocytes 4.6, Absolute Lymphocytes 2.3, Absolute Monocytes 0.7 H, Absolute Eosinophils 0.2, Absolute Basophils 0, PUBS MCHC 33.3 Initial ED EKG: NSR, nonspecific ST T wave chg Prior EKG: unchanged Rhythm Strip: normal sinus rhythm Departure Departure Disposition: HOME OR SELF CARE Condition: Stable Clinical Impression Primary Impression: Palpitations Referrals: JUSTUS LITTLE,SUNNI Brunner (PCP/Family) ARIN HINKLE MD,Klever AMAYA Additional Instructions: FOLLOW UP WITH DR. HINKLE RETURN IF SYMPTOMS WORSEN OR FOR ANY CONCERNS Departure Forms: Customer Survey General Discharge Information Critical Care Note Critical Care Note Critical Care Time: non-applicable
[2017-02-17 22:23] LABS: ABSOLUTE BASOPHIL COUNT 0 /CUMM (0.0-0.2); ABSOLUTE EOSINOPHIL COUNT 0.2 /CUMM (0.0-0.7); ABSOLUTE GRANULOCYTE CT 4.6 /CUMM (1.4-6.5); ABSOLUTE LYMPH COUNT 2.3 /CUMM (1.2-3.4); ABSOLUTE MONOCYTE COUNT 0.7 /CUMM (0.10-0.60); BASOPHIL % 0.4 % (0.0-2.0); EOSINOPHIL % 2.6 % (0-5); GRANULOCYTE % 59.4 % (42.2-75.2); HEMATOCRIT 40.4 % (42-52); MEAN CORPUSCULAR HGB 28.1 PG (27.0-31.0); MEAN CORPUSCULAR HGB CONC 33.3 G/DL (33.0-37.0); MEAN CORPUSCULAR VOLUME 84.2 FL (80.0-94.0); MEAN PLATELET VOLUME 9.5 FL (7.4-10.4); PLATELET COUNT 194 /CUMM (130-400); RBC DISTRIBUTION WIDTH 14.1 % (11.5-14.5); WHITE BLOOD CELL COUNT 7.8 /CUMM (4.8-10.8)
[2017-02-17 23:02] VITALS: BP 140/75
== END 2017-02-17 23:12 ==
LOC: ERH 21:09
PROVIDERS: Emergency Medicine
DX: R00.2 Palpitations (principal)
CPT/HCPCS: 93005; 93010

== ENCOUNTER 2017-04-01 10:10 | Emergency (ER) | payer OTHER ==
[~2017-04-01] VITALS: Ht 190.5 cm; Wt 99.8 kg
[2017-04-01 10:56] LABS: ABSOLUTE BASOPHIL COUNT 0 /CUMM (0.0-0.2); ABSOLUTE EOSINOPHIL COUNT 0.2 /CUMM (0.0-0.7); ABSOLUTE GRANULOCYTE CT 6.7 /CUMM (1.4-6.5); ABSOLUTE LYMPH COUNT 1.2 /CUMM (1.2-3.4); ABSOLUTE MONOCYTE COUNT 0.5 /CUMM (0.10-0.60); BASOPHIL % 0.6 % (0.0-2.0); GRANULOCYTE % 77.8 % (42.2-75.2); HEMATOCRIT 42.5 % (42-52); MEAN CORPUSCULAR HGB 28.5 PG (27.0-31.0); MEAN CORPUSCULAR HGB CONC 33.9 G/DL (33.0-37.0); MEAN CORPUSCULAR VOLUME 84.1 FL (80.0-94.0); MEAN PLATELET VOLUME 9.7 FL (7.4-10.4); PLATELET COUNT 197 /CUMM (130-400); RBC DISTRIBUTION WIDTH 13.6 % (11.5-14.5); RED BLOOD CELL CT 5.06 /CUMM (4.70-6.10); WHITE BLOOD CELL COUNT 8.6 /CUMM (4.8-10.8)
--- NOTE | 2017-04-01 11:18 | CT SCAN REPORT ---
EXAMINATION: CT HEAD WITHOUT CONTRAST CLINICAL INFORMATION: Syncope and head strike. COMPARISON: CT head 11/17/2014. TECHNIQUE: Contiguous axial imaging was performed from the skull base to vertex without intravenous administration of contrast. DLP: 625.71 mGy-cm FINDINGS: There is no acute intracranial hemorrhage or abnormal extra-axial collection. No intracranial mass effect or midline shift. Lateral and third ventricles are normal. No hydrocephalus. Colvin-white matter differentiation is preserved and there is no evidence of acute territorial infarct. The calvarium and skull base are intact. Mastoid air cells and middle ear cavities are well aerated. Visualized paranasal sinuses are well aerated. IMPRESSION: Unremarkable CT scan of the head.
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
[2017-04-01 12:20] VITALS: BP 148/66
[2017-04-01] MEDS ORDERED: OMEPRAZOLE20 M2 PO (12:47)
== END 2017-04-01 14:15 ==
LOC: ERH 10:10
PROVIDERS: Emergency Medicine
DX: R55 Syncope and collapse (principal)
CPT/HCPCS: 93005; 93010